=== PATIENT | female | born 1960 | race Caucasian/White ===

== ENCOUNTER → 2024-08-15 10:24 | Outpatient (REF) | payer BC, SELFPAY | LOC: HWWDC 10:24 | PROVIDERS: ATTENDING PHYSICIAN Family Medicine | DX: Z91.89 Other specified personal risk factors, not elsewhere classified (principal); Z12.31 Encounter for screening mammogram for malignant neoplasm of breast | CPT/HCPCS: 77063; 77067; 77080 ==

== ENCOUNTER → 2024-08-20 11:30 | Outpatient (REF) | payer BC, SELFPAY | LOC: PAVMRI 11:30 | PROVIDERS: ATTENDING PHYSICIAN Family Medicine | DX: R16.0 Hepatomegaly, not elsewhere classified (principal) | CPT/HCPCS: 74183; A9575 ==

== ENCOUNTER → 2024-09-08 06:25 | Day surgery (SDC) | payer BC, SELFPAY | LOC: GI 06:25 | PROVIDERS: ATTENDING PHYSICIAN Internal Medicine Gastroenterology | DX: D12.4 Benign neoplasm of descending colon (principal); K63.5 Polyp of colon; K57.30 Diverticulosis of large intestine without perforation or abscess without bleeding; K62.89 Other specified diseases of anus and rectum; K22.89 Other specified disease of esophagus; K31.7 Polyp of stomach and duodenum; K31.89 Other diseases of stomach and duodenum; Z86.0101 Personal history of adenomatous and serrated colon polyps | CPT/HCPCS: 45380; 43239; 88305; 88342 ==

== ENCOUNTER → 2025-04-28 10:23 | Outpatient (REF) | payer BC, SELFPAY | LOC: EMG 10:23 | PROVIDERS: ATTENDING PHYSICIAN Orthopaedic Surgery; FAMILY PHYSICIAN Student in an Organized Health Care Education/Training Program | DX: R20.0 Anesthesia of skin (principal) | CPT/HCPCS: 95886; 95909 ==